=== PATIENT | male | born 1990 | race Caucasian/White ===

== ENCOUNTER 2016-05-22 03:58 | Emergency (ER) | payer OTHER ==
[~2016-05-22] VITALS: Ht 180.3 cm; Wt 95.3 kg
[~2016-05-22 03:58] MED LIST: CLONIDINE HCL0.1 MG PO; FLEXERIL10 MG PO; IBUPROFEN600 M1 PO; LISINOPRIL-HCT1 EACH PO; LOTRIMIN AF12 GM TOP; MECLIZINE HCL25 MG PO; OXYCODONE HCL5 M1 PO; PERCOCET 325 MG1 TA2 PO; REGLAN10 M1 PO; TINACTIN30 GM TOP; VICODIN5-300 PO; ZOFRAN ODT4 M1 SL; [UNRECOGNIZED DRUG - CODE] TOP
[2016-05-22 04:06] VITALS: BP 108/69
[2016-05-22] MEDS ORDERED: AMOXICILLIN875 M1 PO (04:28)
--- NOTE | 2016-05-22 04:29 | ED INFLUENZA/URI COMPLAINT ---
History of Present Illness General Chief Complaint: General Adult Stated Complaint: " I THINK I MIGHT HAVE STREP/ STUFFY NOSE" Source: patient, old records Exam Limitations: no limitations Vital Signs & Intake/Output Vital Signs & Intake/Output Vital Signs Date Time Temp Pulse Resp B/P Pulse O2 O2 Flow FiO2 Ox Delivery Rate 05/22 0406 97.4 84 16 108/69 95 Room Air Allergies Coded Allergies: NO KNOWN ALLERGIES (07/11/12) Reconcile Medications Amoxicillin 875 MG TABLET 1 TAB PO BID sinusitis Clonidine HCl 0.1 MG TABLET 1 TAB PO TID PRN WITHDRAWL Clotrimazole (Lotrimin AF) 1 % CREAM..G. 1 YARY TOP TID YEAST INFECTION ON FEET apply to affected area(s) Ibuprofen 600 MG TABLET 1 TAB PO TID PRN PAIN with food Ibuprofen 600 MG TABLET 1 TAB PO TID PRN PAIN with food Lisinopril/Hydrochlorothiazide (Lisinopril-Hctz 20-12.5 MG Tab) 1 EACH TABLET 1 TAB PO DAILY HYPERTENSION Metoclopramide HCl (Reglan) 10 MG TABLET 1 TAB PO 4 TIMES/DAY PRN NAUSEA 30 minutes before meals and bedtime Nystatin 50 MILLION UNIT POWDER.EA. 1 YARY TOP TID YEAST INFECTION ON FEET Oxycodone HCl 5 MG TABLET 1 TAB PO Q6 PRN PAIN Tolnaftate (Tinactin) 1 % CREAM..G. 1 YARY TOP BID ATHLETES FEET APPLY TO BOTH FEET TWICA A DAY FOR 7 DAYS Triage Note: 26YO MALE TO TRIAGE W/CO STUFFY NOSE, SORE THROAT AND COUGH SINCE YESTERDAY. Triage Nurses Notes Reviewed? yes Onset: Morning Duration: hour(s):, constant, continues in ED Timing: recent history Severity: moderate Prior Episodes/Possible Cause: illness exposure No Modifying Factors: none Associated Symptoms: cough, headache, muscle aches, nasal congestion, sinus infection HPI: The morning prior to admission patient felt sore throat nasal congestion nonproductive cough sore throat. Received steroid injection from PMD. He denies fever chills nausea vomiting diarrhea abdominal pain chest pain shortness of breath headache dysuria rash bleeding Past History Travel History Traveled to [place] past 21 day No Medical History Any Pertinent Medical History? see below for history Neurological: NONE EENT: NONE Cardiovascular: hypertension Respiratory: NONE Gastrointestinal: NONE Hepatic: NONE Musculoskeletal: chronic back pain, ARNOLD JAZZMINE MALFORMATION Psychiatric: NONE Endocrine: NONE Blood Disorders: NONE Cancer(s): NONE Surgical History Surgical History: non-contributory Psychosocial History What is your primary language Vietnamese Tobacco Use: Current Not Daily Daily Tobacco Use Amount/Type: =< 4 Cigarettes daily Family History Hx Contributory? No Review of Systems Review of Systems Constitutional: Reports: no symptoms. EENTM: Reports: see HPI. Denies: nasal congestion, throat pain. Respiratory: Reports: no symptoms. Cardiovascular: Reports: no symptoms. GI: Reports: no symptoms. Genitourinary: Reports: no symptoms. Musculoskeletal: Reports: no symptoms. Skin: Reports: no symptoms. Neurological/Psychological: Reports: no symptoms. Hematologic/Endocrine: Reports: no symptoms. Immunologic/Allergic: Reports: no symptoms. All Other Systems: Reviewed and Negative Physical Exam Physical Exam General Appearance: well developed/nourished, alert, awake, anxious, mild distress Head: atraumatic, normal appearance, tenderness (frontal sinus) Eyes: Bilateral: normal appearance, PERRL, EOMI. Ears, Nose, Throat: moist mucous membrane, nasal congestion, pharyngeal erythema Neck: normal inspection, supple, full range of motion, trachea midline, lymphadenopathy (R), lymphadenopathy (L) Respiratory: normal breath sounds, chest non-tender, no respiratory distress, quiet respiration, lungs clear Cardiovascular: regular rate/rhythm, normal peripheral pulses, norml femoral pulses equa Peripheral Pulses: 4+ carotid (R), 4+ carotid (L) Gastrointestinal: normal bowel sounds, soft, non-tender, no organomegaly Back: normal inspection, normal range of motion Extremities: normal inspection, normal capillary refill, normal range of motion, no edema Neurologic/Psych: no motor/sensory deficits, awake, alert, oriented x 3, normal gait, normal mood/affect, first assistant II-XII nml as tested Reflexes: 2+: bicep (R), bicep (L). Skin: intact, normal color, warm/dry Lymphatic: adenopathy Core Measures Severe Sepsis Present: No Septic Shock Present: No Progress Differential Diagnosis: pharyngitis, sinusitis Plan of Care: Orders Procedure Date/time Status THROAT CULTURE W/QUICK STREP 05/22 0409 Active Initial ED EKG: none Departure Departure Time of Disposition: 426 Disposition: HOME OR SELF CARE Condition: Stable Clinical Impression Primary Impression: Sinusitis, acute Qualifiers: Sinusitis location: unspecified location Recurrence: not specified as recurrent Qualified Code: J01.90 - Acute sinusitis, unspecified Referrals: SPENCER JOHNSTON,FRANCOIS (PCP/Family) Departure Forms: Customer Survey General Discharge Information Prescriptions: Current Visit Scripts Amoxicillin 1 TAB PO BID #20 TAB
== END 2016-05-22 04:48 ==
LOC: ERH 03:58
DX: J32.9 Chronic sinusitis, unspecified (principal); F17.210 Nicotine dependence, cigarettes, uncomplicated